=== PATIENT | male | born 1975 | race African-American/Black ===

== ENCOUNTER 2016-06-22 17:37 | Emergency (ER) | payer BC ==
[~2016-06-22] VITALS: Ht 188 cm; Wt 125.6 kg
[~2016-06-22 17:37] MED LIST: AMOXICILLIN875 MG PO; INDOCIN50 MG PO; MOBIC7.5 MG PO; MOTRIN600 MG PO; MOTRIN800 MG PO; NAPROSYN500 MG PO; PERCOCET 5/31 TABLET PO; TRAMADOL HCL50 MG PO; ULTRAM50 MG PO
[2016-06-22 17:45] VITALS: BP 151/100
[2016-06-22] MEDS ORDERED: AMOXICILLIN500 M1 PO (20:59)
== END 2016-06-22 19:19 | disposition left against medical advice (07) ==
LOC: EME 17:37
DX: H92.01 Otalgia, right ear (principal); Z53.21 Procedure and treatment not carried out due to patient leaving prior to being seen by health care provider

== ENCOUNTER 2016-06-22 19:26 | Emergency (ER) | payer BC ==
[~2016-06-22] VITALS: Ht 188 cm; Wt 125.6 kg
[2016-06-22] MEDS ORDERED: AMOXICILLIN500 M1 PO (20:59)
[2016-06-22 21:15] VITALS: BP 151/107
== END 2016-06-22 21:16 | disposition home or self-care (01) ==
LOC: EME 19:26
DX: H66.91 Otitis media, unspecified, right ear (principal)
CPT/HCPCS: 99281; 99283

== ENCOUNTER 2016-08-21 15:23 | Emergency (ER) | payer BC ==
[~2016-08-21] VITALS: Ht 188 cm; Wt 122.7 kg
[~2016-08-21 15:23] MED LIST changes: +AMOXICILLIN500 M1 PO
[2016-08-21] MEDS ORDERED: NAPROSYN500 MG PO (17:37)
[2016-08-21 17:44] VITALS: BP 131/86
== END 2016-08-21 17:45 | disposition home or self-care (01) ==
LOC: EME 15:23
PROC: 3E0234Z Introduction of Serum, Toxoid and Vaccine into Muscle, Percutaneous Approach (ICD-10-PCS; principal; 2016-08-21)
DX: S80.01XA Contusion of right knee, initial encounter (principal); S61.215A Laceration without foreign body of left ring finger without damage to nail, initial encounter; W01.0XXA Fall on same level from slipping, tripping and stumbling without subsequent striking against object, initial encounter; Z23 Encounter for immunization
CPT/HCPCS: 73564; 99281; 99283

== ENCOUNTER 2017-06-01 19:24 | Emergency (ER) | payer BC ==
[~2017-06-01] VITALS: Ht 188 cm; Wt 126.1 kg
[2017-06-01 20:16] LABS: HEMATOCRIT 43.4 % (38.0-50.0); HEMOGLOBIN 14.8 G/DL (12.5-16.6); MCH 27.1 PG (29.0-34.0); MCHC 34.1 G/DL (30.0-36.0); MCV 79.3 FL (86-99); RBC DIS.WIDTH-CV 13.4 % (11.8-14.6); RBC DIS.WIDTH-SD 38.2 % (39-53); RED BLOOD COUNT 5.47 M/uL (4.00-5.50)
[2017-06-01 20:33] LABS: CHLORIDE 103 mEq/L (99-109); POTASSIUM 4.1 mEq/L (3.7-5.4); SODIUM 141 mEq/L (136-147)
[2017-06-01 20:35] LABS: GLUCOSE 118 mg/dL (70-99)
[2017-06-01 20:39] LABS: CREATININE 1.1 mg/dL (0.6-1.3); GFR ESTIMATE (CALCULATED) > 59 mL/min/ (58.99-99999)
[2017-06-01 20:40] LABS: TROP-I INTERPRETATION NEGATIVE; TROPONIN-I < 0.01 ng/mL (0.0-0.30); UREA NITROGEN (BUN) 9 mg/dL (9-23)
[2017-06-01 21:18] LABS: PLAT.SUFFICIENCY ADEQUATE; PLATELET COUNT 216 K/uL (156-360)
[2017-06-01] MEDS ORDERED: VENTOLIN HFA18 GM IH (23:29)
[2017-06-01 23:56] VITALS: BP 133/90
== END 2017-06-02 00:06 | disposition home or self-care (01) ==
LOC: EME 19:24
DX: J98.01 Acute bronchospasm (principal)
CPT/HCPCS: 71046; 80048; 84484; 85027; 93005; 94640; 99281; 99285

== ENCOUNTER 2017-08-11 23:33 | Emergency (ER) | payer BC ==
[~2017-08-11] VITALS: Ht 188 cm; Wt 124.9 kg
[~2017-08-11 23:33] MED LIST changes: +VENTOLIN HFA18 GM IH
[2017-08-12 03:15] VITALS: BP 154/105
== END 2017-08-12 03:15 | disposition home or self-care (01) ==
LOC: EME 23:33
DX: S83.91XA Sprain of unspecified site of right knee, initial encounter (principal); W11.XXXA Fall on and from ladder, initial encounter
CPT/HCPCS: 73564; 99281; 99283

== ENCOUNTER 2017-11-14 16:01 | Emergency (ER) | payer BC ==
[~2017-11-14] VITALS: Ht 188 cm; Wt 122.5 kg
[2017-11-14] MEDS ORDERED: ULTRAM50 MG PO (17:13)
[2017-11-14 17:34] VITALS: BP 183/92
== END 2017-11-14 17:57 | disposition home or self-care (01) ==
LOC: EME 16:01
PROC: 2W3JX1Z Immobilization of Right Finger using Splint (ICD-10-PCS; principal; 2017-11-14)
DX: S62.632A Displaced fracture of distal phalanx of right middle finger, initial encounter for closed fracture (principal); W20.8XXA Other cause of strike by thrown, projected or falling object, initial encounter; Y99.0 Civilian activity done for income or pay
CPT/HCPCS: 73130; 99281; 99283